=== PATIENT | male | born 1950 | race African-American/Black ===

== ENCOUNTER 2016-08-27 10:36 | Emergency (ER) | payer BC ==
[2016-08-27 14:27] LABS: Hematocrit 39 % (42-52); Hemoglobin 13.6 g/dl (14.0-18.0); Mean Corpuscular HGB Conc 35 g/dl (31-36); Mean Corpuscular Hemoglobin 35 pg (27-31); Mean Corpuscular Volume 102 fL (80-94); Mean Platelet Volume 9 um3 (7.4-10.4); Red Blood Count 3.84 10^6/ul (4.0-5.4); Red Cell Distribution Width 13 % (10.5-15); White Blood Count 5.6 10^3/ul (3.5-10.8)
[2016-08-27 14:44] LABS: Calcium 9.1 mg/dL (8.6-10.3); EGFR African American 106.5 (>60); EGFR Non-African American 82.8 (>60); Total Bilirubin 0.7 mg/dL (0.2-1.0)
[2016-08-27] MEDS ORDERED: DOXYcycline CAP(*) 100 MG PO ONE (15:00)
[2016-08-27 15:13] VITALS: BP 129/67
--- NOTE | 2016-09-04 09:50 | ED ---
Mario Thorpe Alok, scribed for Rudy Gagnon MD on 08/27/16 at 1418 . Skin Complaint - HPI Summary HPI Summary: 65M presents to the ED for a new onset of ecchymosis on the left-side of his back discovered this morning after waking. Pt denies recent direct trauma. Pt notes a tick bite 2 weeks ago removed himself from his right hand. Pt notes pruritus of the scalp, right wrist, and right ankle. Pt notes eye irritation. Pt denies sneezing or eye drainage. Pt has pets at home with h/o fleas. Pt notes taking aspirin and motrin alternating after meals. Pt drinks ETOH daily. PMHx includes hx depression, PTSD, and GERD last episode one week ago. Pt notes having recent sonogram. - History of Current Complaint Chief Complaint: EDGeneral Time Seen by Provider: 08/27/16 13:47 Stated Complaint: LT FLANK BRUISING Hx Obtained From: Patient Onset/Duration: Started Hours Ago, Atraumatic, Still Present Timing: Constant Onset Severity: Moderate Current Severity: Moderate Pain Intensity: 0 Pain Scale Used: 0-10 Numeric Skin Location: Other: - back Character: Pruritus Aggravating Symptom(s): Nothing Alleviating Symptom(s): Nothing Associated Signs & Symptoms: Bruising - Allergy/Home Medications Allergies/Adverse Reactions: Allergies Allergy/AdvReac Type Severity Reaction Status Date / Time Unable to Obtain Allergy Verified 08/27/16 11:14 PMH/Surg Hx/FS Hx/Imm Hx GI History: Reports: Hx Gastroesophageal Reflux Disease Infectious Disease History: Yes Infectious Disease History: Denies: Traveled Outside the [place] in Last 30 Days - Family History Known Family History: Negative: Cardiac Disease, Hypertension, Diabetes - Social History Occupation: Retired Lives: Alone Alcohol Use: Daily Alcohol Amount: 7-8 beers "easy" Substance Use Type: Reports: None Smoking Status (MU): Former Smoker Review of Systems Negative: Fever, Chills Eyes: Other - irritation Negative: Drainage, Erythema Negative: Sore Throat, Other - Sneezing Negative: Chest Pain Negative: Shortness Of Breath, Cough Negative: Abdominal Pain, Vomiting, Nausea Negative: dysuria, hematuria Negative: Myalgia, Edema Positive: Bruising, Other - Pruritus . Negative: Rash Neurological: Other - Negative: Dizziness Positive: Depressed All Other Systems Reviewed And Are Negative: Yes Physical Exam - Summary Physical Exam Summary: Constitutional: Well-developed, Well-nourished, Alert. (-) Distressed Skin: Bruise over left posterior subcostal area 3cm by 3cm. Multiple small puncture wounds over arms and legs. HENT: Normocephalic; Atraumatic Eyes: Conjunctiva normal Neck: Musculoskeletal ROM normal neck. (-) JVD, (-) Stridor, (-) Tracheal deviation Cardio: Rhythm regular, rate normal, Heart sounds normal; Intact distal pulses; The pedal pulses are 2+ and symmetric. Radial pulses are 2+ and symmetric. (-) Murmur Pulmonary/Chest wall: Effort normal. (-) Respiratory distress, (-) Wheezes, (-) Rales Abd: Soft, (-) Tenderness, (-) Distension, (-) Guarding, (-) Rebound. Enlarged Liver. Musculoskeletal: (-) Edema Lymph: (-) Cervical adenopathy Neuro: Alert, Oriented x3 Psych: Mood and affect Normal Triage Information Reviewed: Yes Vital Signs On Initial Exam: Initial Vitals Temp Pulse Resp BP Pulse Ox 98.5 F 91 17 138/99 96 08/27/16 11:08 08/27/16 11:08 08/27/16 11:08 08/27/16 11:08 08/27/16 11:08 Vital Signs Reviewed: Yes - [place] Coma Scale Coma Scale Total: 15 Diagnostics - Vital Signs Vital Signs Temp Pulse Resp BP Pulse Ox 08/27/16 11:28 98.5 F 87 16 135/84 98 08/27/16 11:08 98.5 F 91 17 138/99 96 - Laboratory Result Diagrams: 08/27/16 14:00 08/27/16 14:00 Lab Statement: Any lab studies that have been ordered have been reviewed, and results considered in the medical decision making process. - EKG 1410 Cardiac Rate: NL - 82 bpm EKG Rhythm: Sinus Rhythm EKG Interpretation: No STEMI Course/Dx - Diagnoses Provider Diagnoses: Medication adverse effect, Tick bite, Anxiety, Ecchymosis, Chest pain, unspecified Discharge - Discharge Plan Condition: Stable Disposition: HOME Patient Education Materials: Chest Pain (ED), Tick Bite (ED), Adverse Drug Reaction (ED), Anxiety (ED), Ecchymosis (ED) Referrals: Forest Hernandez MD [Primary Care Provider] - Mingo Gonzalez MD [Medical Doctor] - Klaus Harrell MD [Medical Doctor] - Additional Instructions: RETURN TO THE EMERGENCY DEPARTMENT FOR CHANGING OR WORSENING SYMPTOMS Please discontinue your aspirin therapy. The documentation as recorded by the Mario peterson Alok accurately reflects the service I personally performed and the decisions made by me, Rudy Gagnon MD.
== END 2016-08-27 15:27 | disposition home or self-care (01) ==
LOC: ED 10:36
DX: F32.9 Major depressive disorder, single episode, unspecified (principal); Z87.891 Personal history of nicotine dependence; S20.462A Insect bite (nonvenomous) of left back wall of thorax, initial encounter; W57.XXXA Bitten or stung by nonvenomous insect and other nonvenomous arthropods, initial encounter; Y93.9 Activity, unspecified; Y92.9 Unspecified place or not applicable; R07.9 Chest pain, unspecified; R58 Hemorrhage, not elsewhere classified; T50.905A Adverse effect of unspecified drugs, medicaments and biological substances, initial encounter
CPT/HCPCS: 36415; 80053; 84484; 85027; 85610; 85730; 86618; 93005; 99282; A9270-GY